=== PATIENT | female | born 2000 | race Caucasian/White ===

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

== ENCOUNTER 2022-06-17 20:37 | Emergency (ER) | payer OTHER ==
[2022-06-17] MEDS ORDERED: Ketorolac 30 MG/ML SDV IM ONE (21:28)
[2022-06-17] MEDS ORDERED: Acetaminophen/HYDROcodone 325-5 MG Tab PO ONE (21:29)
== END 2022-06-17 22:02 | disposition home or self-care (01) ==
LOC: JP.ED 20:37
DX: K04.7 Periapical abscess without sinus (principal); Z86.16 Personal history of COVID-19
CPT/HCPCS: 96372; 99282; A9270; J1885